=== PATIENT | male | born 1940 | race Caucasian/White ===

== ENCOUNTER → 2020-02-26 12:10 | Outpatient (CLI) | payer MEDICARE, OTHER, SELFPAY ==
[2020-02-26 08:36] VITALS: BMI 28.5
[2020-02-26 13:04] LABS: BNP,B-Type NATRIURETIC PEPTIDE 186.4 pg/mL (0-100)
[2020-02-26 13:12] LABS: Thyroid Stim Hormone (TSH) 1.35 uIU/mL (0.358-3.74)
== END ==
PROVIDERS: PCP Internal Medicine; Referring Provider Internal Medicine Cardiovascular Disease; Visit Provider Internal Medicine Cardiovascular Disease
DX: R06.00 Dyspnea, unspecified (principal)
CPT/HCPCS: 36415; 83880; 84443

== ENCOUNTER → 2022-05-01 | Outpatient (CLI) | payer MEDICARE, OTHER, SELFPAY ==
--- NOTE | 2022-05-01 10:01 | ECHOD_ITS ---
Reason For Study: CHF Procedure This was a 2D Doppler, Color Flow transthoracic echocardiogram. Exam performed in department. Left Ventricle Normal LV size. Left ventricular systolic function is normal. The estimated ejection fraction is 60 %. No regional wall motion abnormalities noted. Right Ventricle Mildly dilated right ventricle. Normal systolic function. Atria The left atrium is mildly enlarged. The right atrium is moderately enlarged. Mitral Valve Bileaflet diffuse mitral valve thickening. Mild (1+) eccentric mitral valve insufficiency. Tricuspid Valve Normal tricuspid valve. Mild (1+) tricuspid valve insufficiency. Pulmonary artery systolic pressure is 38 mmHg. Aortic Valve Trisinus/trileaflet aortic valve. Mild focal aortic valve calcification. Pulmonic Valve Normal pulmonic valve. Great Vessels Normal aortic root. The pulmonary artery is normal size. Normal inferior vena cava. Pericardium/Pleural No pericardial effusion. MMode/2D Measurements & Calculations LVIDd: 4.3 cm IVSd: 0.91 cm LAV(MOD-sp4): 68.0 ml LVIDs: 2.8 cm LVPWd: 0.88 cm FS: 34.5 % LVAd ap4: 24.1 cm2 SV(MOD-sp4): 46.6 ml SV(sp4-el): 51.7 ml LVLd ap4: 6.6 cm EDV(MOD-sp4): 70.5 ml EDV(sp4-el): 75.3 ml LVAs ap4: 12.4 cm2 LVLs ap4: 5.6 cm ESV(MOD-sp4): 23.9 ml ESV(sp4-el): 23.6 ml EF(MOD-sp4): 66.1 % EF(sp4-el): 68.7 % LA A4 area: 22.5 cm2 RA A4 area: 26.6 cm2 Doppler Measurements & Calculations MV E max justine: 64.5 cm/sec Ao V2 max: 87.0 cm/sec LV V1 max: 63.9 cm/sec Ao max P.0 mmHg LV V1 max P.6 mmHg Ao V2 mean: 58.8 cm/sec LV V1 mean P.74 mmHg Ao mean P.6 mmHg LV V1 mean: 39.5 cm/sec Ao V2 VTI: 15.9 cm LV V1 VTI: 12.0 cm AV (velocity ratio): 0.75 MR max justine: 447.6 cm/sec TR max justine: 288.2 cm/sec MR max P.1 mmHg TR max P.2 mmHg ECHO/Echo Complete Interpretation Summary Normal LV size. Left ventricular systolic function is normal. The estimated ejection fraction is 60 %. Mildly dilated right ventricle. The right atrium is moderately enlarged. The left atrium is mildly enlarged. Pulmonary artery systolic pressure is 38 mmHg. Ordering Physician: Alex Alonso Referring Physician: Ra Woodward M.D. Performed By: Dionne Francis RCS
== END | disposition home or self-care (01) ==
LOC: CVS 10:00
PROVIDERS: PCP Internal Medicine; Visit Provider Internal Medicine Cardiovascular Disease
DX: I27.21 Secondary pulmonary arterial hypertension (principal)
CPT/HCPCS: 93306

== ENCOUNTER → 2024-03-04 | Outpatient (CLI) | payer MEDICARE, OTHER, SELFPAY ==
--- NOTE | 2024-03-04 07:54 | CT_ITS ---
STUDY: CT SOFT TISSUE NECK WITH CONTRAST REASON FOR EXAM: Male, 83 years old. NECK PAIN, EVAL FOR Sialolithiasis RADIATION DOSAGE (If Supplied By Facility): CTDIvol = ( 17.17 ) mGy, DLP = ( 553.36 ) mGycm TECHNIQUE: The patient was scanned in a multi-detector CT scanner. High resolution transaxial imaging was performed following intravenous administration of IV 100mL Isovue-[id number]. Sagittal and coronal images were reconstructed. Individualized dose optimization techniques were used for this CT. COMPARISON: None. FINDINGS: Normal bilateral parotid glands. Normal bilateral rolfer spaces. Normal bilateral parapharyngeal spaces. Normal bilateral carotid spaces. Normal bilateral sublingual and submandibular glands and spaces. Normal visualized nasopharynx. Normal retropharyngeal space. Normal perivertebral space. Normal visualized bilateral faucial tonsils. The visualized tongue, tongue base and oropharynx are normal. The visualized cervical lymph nodes (levels I-) are within normal size limits, and maintain normal morphology. There is no demonstrated solid or cystic mass lesion. There is no abnormal contrast enhancement. Normal epiglottis, bilateral vallecula and hypopharynx. The pre-epiglottic and paraglottic adipose spaces are normal. Normal visualized bilateral piriform sinuses, aryepiglottic folds, vocal cords, and arytenoid-cricoid articulations. Normal subglottic trachea. Normal bilateral lobes of the thyroid gland. Normal visualized pulmonary apices. Atheromatous calcification of the aortic arch. Atheromatous calcific plaques at the bifurcation of the carotid arteries bilaterally. Pansinusitis. There is multilevel degenerative changes of the cervical spine. Minimal anterolisthesis of C7 on T1 due to facet joint osteoarthritis. CT/Soft Tissue Neck WITH Contrast IMPRESSION: No acute abnormality is seen. Electronically Signed: Jules Lopez MD at 15:08 EST ,
[2024-03-04 08:39] LABS: CREATININE FINGERSTICK 1.2 mg/dL (0.70-1.30); EGFR FINGERSTICK > 60.0000 mL/min (>60)
== END | disposition home or self-care (01) ==
LOC: CT 07:53
PROVIDERS: PCP Internal Medicine; Referring Provider Otolaryngology; Visit Provider Otolaryngology
DX: M54.2 Cervicalgia (principal)
CPT/HCPCS: 70491; Q9967